=== PATIENT | male | born 1970 | race Caucasian/White ===

== ENCOUNTER 2021-05-01 08:56 | Day surgery (SDC) | payer OTHER ==
[2021-04-28 15:15] VITALS: BMI 30.5
[2021-05-01] MEDS ORDERED: Lidocaine 1% MPF 2 ML VIAL ONE (09:23)
[2021-05-01] MEDS ORDERED: Ondansetron PF 4 MG/2 ML Vial ONE (10:38)
[2021-05-01] MEDS ORDERED: Lidocaine Viscous Sol 2% 15 ml UD Cup ONE (10:38)
[2021-05-01] MEDS ORDERED: PROPOFOL 20 ML ONE ×2 (10:38→11:22)
[2021-05-01] MEDS ORDERED: Lidocaine 1% PF 5 ML VIAL ONE (10:38)
[2021-05-01] MEDS ORDERED: PROPOFOL 40 ML ONE (10:38)
== END 2021-05-01 12:02 | disposition home or self-care (01) ==
LOC: CSHSDC 08:56 → EDBD 13:00
PROVIDERS: ATTEND Internal Medicine Gastroenterology
PROC: 0DJD8ZZ Inspection of Lower Intestinal Tract, Via Natural or Artificial Opening Endoscopic (ICD-10-PCS; principal; 2021-05-01)
PROC: 0DB58ZZ Excision of Esophagus, Via Natural or Artificial Opening Endoscopic (ICD-10-PCS; principal; 2021-05-01)
DX: K22.10 Ulcer of esophagus without bleeding (principal); K25.9 Gastric ulcer, unspecified as acute or chronic, without hemorrhage or perforation; K62.5 Hemorrhage of anus and rectum; R19.7 Diarrhea, unspecified; K44.9 Diaphragmatic hernia without obstruction or gangrene; K64.9 Unspecified hemorrhoids; F32.9 Major depressive disorder, single episode, unspecified
CPT/HCPCS: 88305; J2405; J2704

== ENCOUNTER 2022-03-09 07:57 | Day surgery (SDC) | payer OTHER ==
[2022-03-07 13:10] VITALS: BMI 32.8
[2022-03-09] MEDS ORDERED: PROPOFOL 40 ML ONE (10:17)
[2022-03-09] MEDS ORDERED: Lidocaine 1% PF 5 ML VIAL ONE (10:17)
== END 2022-03-09 11:13 | disposition home or self-care (01) ==
LOC: CSHSDC 07:57
PROVIDERS: ATTEND Internal Medicine Gastroenterology
PROC: 0DB78ZX Excision of Stomach, Pylorus, Via Natural or Artificial Opening Endoscopic, Diagnostic (ICD-10-PCS; principal; 2022-03-09)
DX: K21.9 Gastro-esophageal reflux disease without esophagitis (principal); K29.50 Unspecified chronic gastritis without bleeding; K25.9 Gastric ulcer, unspecified as acute or chronic, without hemorrhage or perforation; K22.10 Ulcer of esophagus without bleeding; K44.9 Diaphragmatic hernia without obstruction or gangrene; F43.10 Post-traumatic stress disorder, unspecified; M54.9 Dorsalgia, unspecified; G89.29 Other chronic pain; F32.A Depression, unspecified
CPT/HCPCS: 88305; 88342; J2704